=== PATIENT | female | born 1995 | race American Indian/Alaskan Native ===

== ENCOUNTER 2020-05-12 16:11 | Emergency (ER) | payer BC ==
[~2020-05-12] VITALS: Ht 160 cm; Wt 65.0 kg
[2020-05-12 16:23] VITALS: TEMP 98.4
[2020-05-12] MEDS ORDERED: ZYRTEC 10MG10 MG PO (16:37)
[2020-05-12] MEDS ORDERED: ONE-A-DAY ESSE1 EACH PO (16:38)
[2020-05-12 17:17] VITALS: BP 112/69; PULSE 87
== END 2020-05-12 17:17 | disposition home or self-care (01) ==
LOC: COL.ER 16:11
DX: H11.32 Conjunctival hemorrhage, left eye (principal); Z88.0 Allergy status to penicillin; Z88.6 Allergy status to analgesic agent; Z88.1 Allergy status to other antibiotic agents

== ENCOUNTER 2021-10-12 05:07 | Day surgery (SDC) | payer OTHER, BC ==
[~2021-10-12 05:07] MED LIST: ONE-A-DAY ESSE1 EACH PO; ZYRTEC 10MG10 MG PO
[2021-10-12 05:35] LABS: COLLECTION METHOD CLEAN CATCH
[2021-10-12 05:37] LABS: BASO # 0.1 K/mm3 (0.0-0.2); BASO % 0.7 % (0.0-2.0); EOS # 0.1 K/mm3 (0.0-0.7); EOS % 0.9 % (0.0-4.0); GRAN # 6.5 K/mm3 (1.4-6.5); GRAN % 77.3 % (42.2-75.2); HEMATOCRIT 39.2 % (37.0-47.0); HEMOGLOBIN 13.7 g/dl (12.5-16.0); LYMPH # 1.3 K/mm3 (1.2-3.4); LYMPH % 15.8 % (20.0-51.0); MEAN CELL VOLUME 80 fl (80.0-100.0); MEAN CORPUSCULAR HEMOGLOBIN 28 pg (27-31); MEAN CORPUSCULAR HGB CONC 35 g/dl (33.0-37.0); MEAN PLATELET VOLUME 9.5 fl (7.4-10.4); MONO # 0.4 K/mm3 (0.1-0.6); MONO % 5.1 % (1.7-9.3); PLATELET COUNT 317 K/mm3 (130-400); RED BLOOD COUNT 4.89 M/mm3 (4.10-5.30); REDCELL DISTRIBUTION WIDTH-CV 12.3 % (11.5-14.5)
[2021-10-12] MEDS ORDERED: NEURONTIN800 MG/TAB PO (05:37)
[2021-10-12 05:42] LABS: PH 9 (5-8); URINE APPEARANCE Hazy (CLEAR/HAZY); URINE BACTERIA None Seen (NONE SEEN); URINE BILIRUBIN Negative (NEGATIVE); URINE BLOOD Negative (NEGATIVE); URINE COLOR Yellow (YELLOW); URINE GLUCOSE Negative (NEGATIVE); URINE KETONE Trace (NEGATIVE); URINE LEUKOCYTE ESTERASE Negative (NEGATIVE); URINE NITRATE Negative (NEGATIVE); URINE PROTEIN(semi-quant) Negative (NEGATIVE); URINE RBC 0-2 /hpf (0-2); URINE UROBILINOGEN Negative (NEGATIVE)
[2021-10-12 05:55] LABS: ALBUMIN 4.2 gm/dL (3.5-5.0); BILIRUBIN,TOTAL 1.1 mg/dL (0.2-1.2); C-REACTIVE PROTEIN 0.9 mg/dL (0.00-0.50); CREATININE, serum 0.85 mg/dL (0.57-1.11); POTASSIUM 3.3 mmol/L (3.5-4.5); TOTAL PROTEIN 7.8 gm/dL (6.2-8.1)
[2021-10-12 16:35] VITALS: BP 102/52; PULSE 94; TEMP 97.7
[2021-10-12] MEDS ORDERED: DILAUDID 2MG TAB2 MG PO (16:46)
[2021-10-12] MEDS ORDERED: MOTRIN 600600 MG/TAB PO (16:46)
[2021-10-12] MEDS ORDERED: FLAGYL500 MG PO (16:48)
[2021-10-12] MEDS ORDERED: CIPRO 500MG TA500 MG PO (16:48)
[2021-10-12 16:50] VITALS: BP 103/67; PULSE 75
[2021-10-12 17:05] VITALS: BP 103/61; PULSE 70
--- NOTE | 2021-10-12 17:55 | NUR ---
1635 Pt returned to [facility] [place] bay 5 via cart. Alert and oriented. Postop vitals started. Partner brought to bedside. Juice and pudding provided. Operative sites clean, dry, well approximated. Pt reports px 3/10, denies nausea. 1650 Pt sitting up in bed. Tolerating food and drink well. 1705 Pt sitting up in bed, reports mild nausea. Denies any need for medication. 1720 Pt up to bathroom. Scant sanguineous blood left bed pad and patient reports vaginal bleeding. Pt states that she does not know if she should have menstral bleeding at this time. [address] Manning. OK to dishcarge patient home. Mesh panties and pad provided. 1740 Reviewed discharge instructions and education material. Pt and partner verbalize understanding and denie any questions. IV removed from left AC without complications. Instructed to dress and open door when ready for d/c 1755 Pt trans via wheel chair to personal vehicle to be driven home by partner.
== END 2021-10-12 17:55 | disposition home or self-care (01) ==
LOC: COL.ER 05:07 → SDCO 14:39
PROVIDERS: Family Medicine
DX: K80.12 Calculus of gallbladder with acute and chronic cholecystitis without obstruction (principal); I07.1 Rheumatic tricuspid insufficiency; G62.9 Polyneuropathy, unspecified; Z79.899 Other long term (current) drug therapy
CPT/HCPCS: J1100; J1170; J1200; J1885; J1956; J2405; J2704; J3010; J7120; Q9967